=== PATIENT | female | born 1925 | race Caucasian/White ===

== ENCOUNTER 2017-01-27 13:33 | Emergency (ER) | payer MEDICARE, BC ==
[~2017-01-27] VITALS: Ht 162.6 cm; Wt 49.0 kg
[2017-01-27 14:33] LABS: BASOPHILS % (AUTO) 1 % (0-2); EOSINOPHILS # (AUTO) 0.2 10^3uL; EOSINOPHILS % (AUTO) 3 % (0-4); LYMPHOCYTES # (AUTO) 2.3 X10^3; MEAN CORPUSCULAR HGB CONC 35.3 g/dL (31.0-37.0); MEAN CORPUSCULAR VOLUME 93 FL (80-100); MEAN PLATELET VOLUME 9.7 FL (6.0-9.5); MONOCYTES # (AUTO) 0.7 X10^3; MONOCYTES % (AUTO) 10 % (3-11); NEUTROPHILS # (AUTO) 3.3 X10^3; NEUTROPHILS % (AUTO) 50 % (51-67); PLATELET COUNT 187 10^3uL (150-450); WHITE BLOOD COUNT 6.46 10^3uL (4.0-11.0)
[2017-01-27 14:37] LABS: ALBUMIN 4.5 g/dL (3.4-5.0); ANION GAP 18.4 MEQ/L (3-15); CALCULATED IONIZED CALCIUM 3.8 mg/dL (3.8-4.6); MEAN CORPUSCULAR HEMOGLOBIN 32.7 PG (26.0-34.0); TOTAL PROTEIN 7.8 g/dL (6.4-8.5)
[2017-01-27 15:20] LABS: BILIRUBIN,URINE Negative (Negative); CLARITY,URINE Clear; COLOR,URINE Yellow; GLUCOSE, URINE (UA) Negative (Negative); LEUKOCYTE ESTERASE ,URINE Negative (Negative); UROBILINOGEN,URINE 0.2 mg/dL (0.2-1.0)
--- NOTE | 2017-01-27 15:20 | NUR ---
DR BYERS [facility] FAXES OVER COPY OF DNR TO BE SCANNED INTO CHART. PT ALSO VERBALIZES SHE HAD PAPERS ON HER REFRIDGERATOR BUT EMS DID NOT BRING THEM ALONG. CL
[2017-01-27 17:29] VITALS: BP 130/75
--- NOTE | 2017-01-27 17:36 | NUR ---
PT CARDIAC RHYTHM STRIPS INADVERDANTLY DELETED. PACED RHYTHM WHILE HERE WNL FOR RATE W/AFIB NOTED PER ASSOCIATE DOCTOR. INITIAL STRIP ONLY STRIP PRINTED WHEN PLACED ON MONITOR. DR MCELROY REVIEWS RHYTHMS WITH THIS RN VISUALLY ON MONITOR HX. CL
== END 2017-01-27 17:36 | disposition home or self-care (01) ==
LOC: ED 13:37
DX: R51 Headache (principal); R53.81 Other malaise; Z66 Do not resuscitate
CPT/HCPCS: 36415; 80053; 81003; 85025; 99282; 99285

== ENCOUNTER → 2017-01-27 | Outpatient (CLI) | payer MEDICARE | LOC: EMS 13:20 | PROVIDERS: ATTEND Emergency Medicine | DX: I63.9 Cerebral infarction, unspecified (principal) ==